=== PATIENT | male | born 1955 | race Caucasian/White ===

== ENCOUNTER 2020-03-06 06:55 | Outpatient (NON) | payer OTHER, SELFPAY ==
[2020-03-06 18:17] LABS: SARS-CoV-2 RNA PCR Positive
== END 2020-03-06 06:56 ==
PROVIDERS: PCP Internal Medicine; Visit Provider Internal Medicine
DX: U07.1 COVID-19 (principal)
CPT/HCPCS: 87635; C9803; U0003

== ENCOUNTER 2020-03-23 10:08 | Outpatient (CLI) | payer OTHER, SELFPAY ==
--- NOTE | ~2020-03-23 | XR_ITS ---
EXAMINATION: XR chest 2V 03/23/2020 10:35 INDICATION: Cough. Recent Covid infection. PROCEDURE: 2 view chest COMPARISON: No prior studies for comparison. FINDINGS: The lungs are clear. The cardiomediastinal silhouette is within normal limits. There are no pleural effusions. There is no pneumothorax suspected. IMPRESSION: 1: NO ACUTE CARDIOPULMONARY DISEASE. Reviewed, dictated and finalized at location B.
== END 2020-03-23 10:09 | disposition home or self-care (01) ==
LOC: ANHIMG 10:14
PROVIDERS: PCP Internal Medicine; Visit Provider Nurse Practitioner
DX: R05 Cough (principal)
CPT/HCPCS: 71046

== ENCOUNTER → 2021-07-23 08:15 | Outpatient (CLI) | payer OTHER, SELFPAY ==
[2021-07-23 11:52] LABS: Influenza A QL RT-PCR Negative (Negative); Influenza B QL RT-PCR Negative (Negative); SARS-CoV-2 RNA PCR Negative
== END ==
PROVIDERS: PCP Internal Medicine; Visit Provider Internal Medicine
DX: R68.89 Other general symptoms and signs (principal); Z20.822 Contact with and (suspected) exposure to COVID-19
CPT/HCPCS: 87502; C9803; U0003; U0005

== ENCOUNTER 2021-07-31 12:41 | Outpatient (CLI) | payer OTHER, SELFPAY ==
--- NOTE | ~2021-07-31 | XR_ITS ---
XR_CERV2-3V_CR 07/31/2021 12:58 Indication: Neck pain Procedure: 3 views of the cervical spine Comparison: No prior studies for comparison. Findings: There is disc narrowing and endplate degenerative change at C5-6 and C6-7. No prevertebral soft tissue swelling. Odontoid process within normal limits. There is multilevel uncinate hypertrophy . Lung apices are normal. Impression: 1: Mild-moderate cervical spondylosis. Reviewed, dictated and finalized at location A. [employer] Impression: 1: Mild-moderate cervical spondylosis.
== END 2021-07-31 12:42 | disposition home or self-care (01) ==
LOC: ANHIMG 12:44
PROVIDERS: PCP Internal Medicine; Visit Provider Internal Medicine
DX: S16.1XXA Strain of muscle, fascia and tendon at neck level, initial encounter (principal); X58.XXXA Exposure to other specified factors, initial encounter; M47.22 Other spondylosis with radiculopathy, cervical region
CPT/HCPCS: 72040

== ENCOUNTER 2021-12-27 09:14 | Outpatient (CLI) | payer OTHER, SELFPAY ==
--- NOTE | ~2021-12-27 | XR_ITS ---
XR_CERV2-3V_CR 12/27/2021 09:39 Indication: Radiculopathy Procedure: 4 view cervical spine Comparison: 07/31/2021 Findings: Vertebral body and disc heights are preserved. There is disc narrowing at C5-6 and C6-7. No acute fracture or traumatic malalignment. There is multilevel uncinate and facet degenerative change . Lung apices are unremarkable. Odontoid process within normal limits. No prevertebral soft tissue sw elling. Impression: 1: Moderate cervical spondylosis. Reviewed, dictated and finalized at location A. Impression: 1: Moderate cervical spondylosis.
== END 2021-12-27 09:15 | disposition home or self-care (01) ==
PROVIDERS: PCP Internal Medicine; Visit Provider Internal Medicine
DX: M47.22 Other spondylosis with radiculopathy, cervical region (principal)
CPT/HCPCS: 72040

== ENCOUNTER 2022-05-23 09:01 | Outpatient (CLI) | payer OTHER, SELFPAY ==
--- NOTE | ~2022-05-23 | US_ITS ---
Testicular ultrasound with doppler. Indication: Disorder of male genitalia. Technique: Real-time sonography the scrotum was performed. Color flow Doppler and Doppler spectral an alysis were performed. Findings: The testes are homogeneous in echotexture bilaterally. There is no evidence of an intrates ticular mass. The right testis measures 3.2 x 1.9 x 1.6 cm and the left 2.1 x 1.6 x 1.8 cm. There is color-flow seen to both testes. Arterial and venous spectral waveforms are seen in both testes. There is no sonographic evidence of torsion. The head of the epididymis is visualized bilaterally and is within normal limits. Large right hydrocele noted. Impression: Large right hydrocele. No testicular mass or torsion. Reviewed, dictated and finalized at [facility]. [employer] Impression: Large right hydrocele. No testicular mass or torsion.
== END 2022-05-23 09:02 | disposition home or self-care (01) ==
PROVIDERS: PCP Internal Medicine; Visit Provider Nurse Practitioner
DX: N50.89 Other specified disorders of the male genital organs (principal); N43.3 Hydrocele, unspecified
CPT/HCPCS: 76870; 93976

== ENCOUNTER 2023-11-05 07:52 | Day surgery (SDC) | payer OTHER, SELFPAY ==
[2023-10-16 13:25] VITALS: BMI 30.7
[2023-10-30 08:19] VITALS: BMI 31.6
[2023-11-05] MEDS: LACTATED RINGERS 1,000 ML 150 ML IV CONT (09:35)
[2023-11-05 09:58] LABS: Glucose Point of Care 130 mg/dl (65-105)
[2023-11-05 09:59] VITALS: BP 147/78; PULSE 75; RESP 18; TEMP 36.3; O2SAT 100; BMI 29.9
--- NOTE | 2023-11-05 10:00 | WPDANESEPPF ---
Anes - Initial Pre Proc Eval Procedure: Operation Date: 11/05/23 10:30 Proposed Procedures p Diagnostic Colonoscopy - Carmine Juarez MD Date/Time: 11/05/23 10:00 Surgeon: Carmine Juarez MD Pre Op Diagnosis: Other fecal abnormalities Patient Data Age: 67 Gender: M Height: 1.7 m Weight: 91.5 kg Allergies Allergy/AdvReac Type Severity Reaction Status Date / Time cefuroxime Allergy Severe unknown Verified 11/05/23 09:38 penicillin G Allergy Severe unknown Verified 11/05/23 09:38 Sulfa (Sulfonamide Allergy Severe unknown Verified 11/05/23 09:38 Antibiotics) cephalexin Allergy Unknown unknown Verified 11/05/23 09:38 Cephalosporins Allergy Unknown unknown Verified 11/05/23 09:38 clarithromycin Allergy Unknown unknown Verified 11/05/23 09:38 doxycycline Allergy Unknown Unknown Verified 11/05/23 09:38 Penicillins Allergy Unknown Unknown Verified 11/05/23 09:38 sulfanilamide Allergy Unknown unknown Verified 11/05/23 09:38 Home Medications Medication Instructions Recorded Confirmed Type cholecalciferol (vitamin D3) 125 5,000 unit PO DAILY 04/20/19 11/05/23 History mcg (5,000 unit) tablet coenzyme Q10 100 mg capsule (Co 100 mg PO DAILY 09/20/19 11/05/23 History Q-10) fluticasone propionate 50 1 spray intranasal DAILY PRN 08/13/20 11/05/23 History mcg/actuation nasal allergy symptoms spray,suspension mecobalamin (vitamin B12) 1,000 1,000 mcg PO DAILY 08/22/21 11/05/23 History mcg chewable tablet clobetasol 0.05 % topical ointment 1 applic topical BID #60 grams 12/08/22 11/05/23 Rx albuterol sulfate 90 mcg/actuation 1 puff inhalation Q4H PRN 02/06/23 11/05/23 Rx aerosol inhaler (Ventolin HFA) shortness of breath #18 grams amlodipine 10 mg tablet 10 mg PO DAILY #90 tabs 06/04/23 11/05/23 Rx lisinopril 20 mg tablet 20 mg PO DAILY #90 tabs 07/31/23 11/05/23 Rx atorvastatin 40 mg tablet 40 mg PO DAILY 10/30/23 11/05/23 History empagliflozin 25 mg tablet 25 mg PO DAILY 10/30/23 11/05/23 History (Jardiance) fluticasone furoate 200 1 inh inhalation DAILY 10/30/23 11/05/23 History mcg-vilanterol 25 mcg/dose inhalation powder (Breo Ellipta) metformin 1,000 mg tablet 1,000 mg PO BID 10/30/23 11/05/23 History montelukast 10 mg tablet 10 mg PO DAILY 10/30/23 11/05/23 History tamsulosin 0.4 mg capsule 0.4 mg PO DAILY 10/30/23 11/05/23 History Laboratory Tests 11/05/23 09:54 POC Capillary Glucose 130 H mg/dl (65-105) Patient hx anesthesia problems: none Family hx anesthesia problems: none Results Review: All pre-operative results and documents have been reviewed as part of the pre-operative evaluation. [facility] Past Medical History Medical History BPH (benign prostatic hyperplasia) Cervical radiculopathy Cough COVID-19 02/20 Essential hypertension Ganglion cyst Hydrocele Hypovitaminosis D Mild persistent asthma without complication Mixed hyperlipidemia Psoriasis (~06/2017) Psoriatic arthritis Type 2 diabetes mellitus without complication Surgical History Surgical History Hx of cataract surgery Family History Family History Father Family history of diabetes mellitus in first degree relative Mother Family history of diabetes mellitus in first degree relative Other Diabetes mellitus Family history of Alzheimer's disease Hypertension Social History Social History Smoking status: Former smoker Tobacco type: cigarettes Second hand tobacco smoke exposure: Yes Alcohol intake: former Drinks per week: 4 Alcohol use details: socially Substance use: current Substance use type: marijuana Other substance usage details: THC gummies Last use: Nightly Lack of Transportation: No Lack of Food: Never True Current [place]
--- NOTE | 2023-11-05 10:20 | PM.HPGS ---
History of Present Illness History of Present Illness Consent: Risks, benefits, and alternatives have been discussed and questions answered. Patient agrees to proceed with procedure. Chief complaint: Other fecal abnormalities Narrative: Chito Farr is a 67 year old male colonoscopy. Patient recently had a Cologuard test. This was found to be positive. Patient denies abdominal pain. He has had no bleeding. Family history noncontributory. Patient presents today for screening colonoscopy. Review of Systems Review of Systems: All systems reviewed & are unremarkable except as noted in HPI and below PMFSH Past Medical History Medical History BPH (benign prostatic hyperplasia) Cervical radiculopathy Cough COVID-19 02/20 Essential hypertension Ganglion cyst Hydrocele Hypovitaminosis D Mild persistent asthma without complication Mixed hyperlipidemia Psoriasis (~06/2017) Psoriatic arthritis Type 2 diabetes mellitus without complication Surgical History Surgical History Hx of cataract surgery Family History Family History Father Family history of diabetes mellitus in first degree relative Mother Family history of diabetes mellitus in first degree relative Other Diabetes mellitus Family history of Alzheimer's disease Hypertension Social History Social History Smoking status: Former smoker Tobacco type: cigarettes Second hand tobacco smoke exposure: Yes Alcohol intake: former Drinks per week: 4 Alcohol use details: socially Substance use: current Substance use type: marijuana Other substance usage details: THC gummies Last use: Nightly Lack of Transportation: No Lack of Food: Never True Current Housing: I Do Not Have Housing Concerned About Future Housing: No Difficulty Paying Gas/Electric Bills: No Difficulty Paying for Meds: No Currently Unemployed: No Education: Associate Degree Difficulty w/ Childcare or Family Care: No Living arrangements: with family Spiritual care concerns: No Meds Home Medications and Allergies Home Medications Medication Instructions Recorded Confirmed Type cholecalciferol (vitamin D3) 125 5,000 unit PO DAILY 04/20/19 11/05/23 History mcg (5,000 unit) tablet coenzyme Q10 100 mg capsule (Co 100 mg PO DAILY 09/20/19 11/05/23 History Q-10) fluticasone propionate 50 1 spray intranasal DAILY PRN 08/13/20 11/05/23 History mcg/actuation nasal allergy symptoms spray,suspension mecobalamin (vitamin B12) 1,000 1,000 mcg PO DAILY 08/22/21 11/05/23 History mcg chewable tablet clobetasol 0.05 % topical ointment 1 applic topical BID #60 grams 12/08/22 11/05/23 Rx albuterol sulfate 90 mcg/actuation 1 puff inhalation Q4H PRN 02/06/23 11/05/23 Rx aerosol inhaler (Ventolin HFA) shortness of breath #18 grams amlodipine 10 mg tablet 10 mg PO DAILY #90 tabs 06/04/23 11/05/23 Rx lisinopril 20 mg tablet 20 mg PO DAILY #90 tabs 07/31/23 11/05/23 Rx atorvastatin 40 mg tablet 40 mg PO DAILY 10/30/23 11/05/23 History empagliflozin 25 mg tablet 25 mg PO DAILY 10/30/23 11/05/23 History (Jardiance) fluticasone furoate 200 1 inh inhalation DAILY 10/30/23 11/05/23 History mcg-vilanterol 25 mcg/dose inhalation powder (Breo Ellipta) metformin 1,000 mg tablet 1,000 mg PO BID 10/30/23 11/05/23 History montelukast 10 mg tablet 10 mg PO DAILY 10/30/23 11/05/23 History tamsulosin 0.4 mg capsule 0.4 mg PO DAILY 10/30/23 11/05/23 History Allergies Allergy/AdvReac Type Severity Reaction Status Date / Time cefuroxime Allergy Severe unknown Verified 11/05/23 09:38 penicillin G Allergy Severe unknown Verified 11/05/23 09:38 Sulfa (Sulfonamide Allergy Severe unknown Verified 11/05/23 09:38 Antibiotics)
[2023-11-05 11:18] VITALS: BP 120/75; PULSE 80; RESP 16; O2SAT 97
[2023-11-05 11:28] VITALS: BP 128/70; PULSE 75; RESP 16; O2SAT 97
--- NOTE | 2023-11-05 11:32 | WPDANESPN ---
Anes - Prog Note Post-Op Date/Time: 11/05/23 11:32 Cardiovascular status: normal Respiratory status: normal Airway patency: baseline Mental status: baseline Post-Op hydration status: normal Vital Signs: Last Vital Signs Temp 36.3 C L 11/05/23 09:59 Pulse 80 11/05/23 11:18 Resp 16 11/05/23 11:18 BP 120/75 11/05/23 11:18 Pulse Ox 97 11/05/23 11:18 O2 Del Method Room Air 11/05/23 11:18 Pain Score (VAS): 0 11/05/23 09:54 POC Capillary Glucose 130 H Patient Feedback: Patient satisfied with anesthetic care.
[2023-11-05 11:38] VITALS: BP 131/70; PULSE 69; RESP 20; O2SAT 98
== END 2023-11-05 11:47 | disposition home or self-care (01) ==
PROVIDERS: PCP Family Medicine; Visit Provider Internal Medicine Gastroenterology
PROC: 0DJD8ZZ Inspection of Lower Intestinal Tract, Via Natural or Artificial Opening Endoscopic (ICD-10-PCS; CPT 45378; principal; 2023-11-05 10:30)
DX: R19.5 Other fecal abnormalities (principal); D12.3 Benign neoplasm of transverse colon; D12.5 Benign neoplasm of sigmoid colon; K57.31 Diverticulosis of large intestine without perforation or abscess with bleeding; K64.8 Other hemorrhoids
CPT/HCPCS: 45385

== ENCOUNTER 2023-11-05 10:59 | Outpatient (NON) | payer OTHER, SELFPAY | END 2023-11-05 11:00 | disposition home or self-care (01) | LOC: ANHLAB 11-06 11:02 | PROVIDERS: PCP Nurse Practitioner Family; Visit Provider Internal Medicine Gastroenterology | DX: D12.5 Benign neoplasm of sigmoid colon (principal); D12.3 Benign neoplasm of transverse colon; R19.5 Other fecal abnormalities | CPT/HCPCS: 88305 ==

== ENCOUNTER 2024-06-14 15:49 | Outpatient (CLI) | payer BC, SELFPAY ==
--- NOTE | ~2024-06-14 | XR_ITS ---
XR shoulder RT min 2V Ordering provider: France Duffy APRN History: . M25.511 - Pain in right shoulder . Comparison: None. FINDINGS: BONES: No acute fracture or dislocation. JOINT SPACES: The acromioclavicular joint is normal. The glenohumeral joint is normal. SOFT TISSUES: Ossification of the insertion of the supraspinatus tendon suggestive of ossific tendini tis. IMPRESSION: No acute osseous abnormality right shoulder. Ossific tendinitis of the supraspinatous tendon. Reviewed, dictated and finalized at location A. [employer]
== END 2024-06-14 15:50 | disposition home or self-care (01) ==
PROVIDERS: PCP Nurse Practitioner Family; Visit Provider Nurse Practitioner Family
DX: M25.811 Other specified joint disorders, right shoulder (principal)
CPT/HCPCS: 73030